=== PATIENT | female | born 2000 | race Caucasian/White ===

== ENCOUNTER 2019-03-05 01:31 | Emergency (ER) | payer BC, OTHER ==
[~2019-03-05] VITALS: Ht 181 cm; Wt 91.0 kg
[2019-03-05] MEDS ORDERED: FAMOTIDINE 20 MG (PEPCID) TABLET PO STA (01:46)
--- NOTE | 2019-03-05 01:53 | NUR ---
pt refused gi cocktail.
--- NOTE | 2019-03-05 01:54 | ED Respiratory ---
General Chief Complaint: Psych/Social Disorder Stated Complaint: SOB Source: patient Exam Limitations: intoxication History of Present Illness Date Seen by Provider: Mar 05, 2019 Time Seen by Provider: 01:37 Initial Comments The patient presents to ER by [email or web address] with chief complaint that she was out drinking and started to feel some pain in her epigastric region. She went to the bathroom but as she got there she been short of breath. She does not have asthma or COPD. She says her family has asthma but she's not having any wheezing cough fever or chills. She does not feel nauseated. She says she had 8 drinks tonight. She denies any trauma. She takes time her sister and her sister told her she needs to go to the ER. Allergies and Home Medications Allergies Coded Allergies: No Known Drug Allergies (Unverified , 03/05/19) Home Medications No Active Prescriptions or Reported Meds Patient Home Medication List Home Medication List Reviewed: Yes Review of Systems Review of Systems Constitutional: No chills, No fever EENTM: No ear discharge, No ear pain Respiratory: No cough, No hemoptysis; short of breath; No wheezing Cardiovascular: No chest pain, No edema Gastrointestinal: abdominal pain (epigastric region); No constipation, No diarrhea, No nausea, No vomiting Genitourinary: No discharge, No dysuria Past [id number] Hx Patient Social History Alcohol Use: Occasionally Uses Number of Drinks Today: 8 Recreational Drug Use: No Smoking Status: Never a Smoker 2nd Hand Smoke Exposure: No Recent Foreign Travel: No Contact w/Someone Who Travel: No Recent Hopitalizations: No Immunizations Up To Date Tetanus Booster (TDap): Unknown Seasonal Allergies Seasonal Allergies: No Past Medical History Surgeries: No Respiratory: No Cardiac: No Neurological: No Genitourinary: No Gastrointestinal: No Musculoskeletal: No Endocrine: No HEENT: No Cancer: No Psychosocial: No Integumentary: No Blood Disorders: No Physical Exam Capillary Refill : Height: '" Weight: lbs. oz. kg; BMI Method: General Appearance: WD/WN, mild distress Eyes: Bilateral Eye Normal Inspection, Bilateral Eye PERRL, Bilateral Eye EOMI HEENT: PERRL/EOMI, normal ENT inspection, pharynx normal Neck: full range of motion, normal inspection Respiratory: lungs clear, normal breath sounds, no respiratory distress, no accessory muscle use Cardiovascular: normal peripheral pulses, regular rate, rhythm, tachycardia Gastrointestinal: normal bowel sounds, non tender, soft, no organomegaly Progress/Results/Core Measures Suspected Sepsis SIRS Temperature: Pulse: Respiratory Rate: Blood Pressure / Mean: Results/Orders My Orders Orders - ADE LEYVA Lidocaine 2% Viscous 15 Ml (Xylocaine Vi (03/05/19 02:00) Famotidine Tablet (Pepcid Tablet) (03/05/19 01:46) Antacid Suspension (Mylanta Suspension (03/05/19 02:00) Vital Signs/I&O Capillary Refill : Progress Note #1: Time: 01:52 Progress Note The patient has a benign abdominal exam and clear breath sounds with oxygen sats 100% on room air. She is tachycardic in the 1 teen range this could be from her dehydration. She denies any recreational drug use. She is mildly intoxicated. She says her breathing is better now the end of our examination and so we've offered to observe her for a short amount of time and give her a GI cocktail to see if that would help with her abdominal pain. She is not nauseated and does not want any Zofran. She denies a history of anxiety or panic attacks. She is tearful on arrival and I suspect perhaps she has some alcoholic gastritis that may have triggered a panic attack. She has declined GI cocktail from nursing. She says she feels great now. Progress Note #2: Time: 01:58 Progress Note The patient states that she feels perfectly fine now. She says she felt like she was going to . We have offered to do some lab and examination give her some IV fluids and rule out any injures pathology. She has declined at this time. We have encouraged her to follow-up with her primary care doctor outpatient if she thinks that would be a good plan. She would like to go home and get some sleep. Departure Impression Primary Impression: Alcohol use Additional Impressions: Anxiety attack Shortness of breath Disposition: 01 HOME, SELF-CARE Condition: Improved Departure-Patient Inst. Decision time for Depature: 02:00 Referrals: NO,LOCAL PHYSICIAN (PCP) Primary Care Physician Patient Instructions: Anxiety, Adult (DC) Add. Discharge Instructions: Return to the nearest ER if you're having shortness of breath. Otherwise plan to follow up with your primary care provider of choice. All discharge instructions reviewed with patient and/or family. Voiced understanding. Scripts No Active Prescriptions or Reported Meds ADE LEYVA Mar 05, 2019 01:54
[2019-03-05] MEDS ORDERED: LIDOCAINE 2% VISCOUS 15 ML UDC PO ONE (02:00)
[2019-03-05] MEDS ORDERED: ANTACID SUSP 30 ML UDC (MYLANTA) PO ONE (02:00)
[2019-03-05 02:04] VITALS: BP 140/81
== END 2019-03-05 02:02 | disposition home or self-care (01) ==
LOC: ER 01:34
DX: F10.929 Alcohol use, unspecified with intoxication, unspecified (principal); F41.0 Panic disorder [episodic paroxysmal anxiety]; R06.02 Shortness of breath
CPT/HCPCS: 99283